=== PATIENT | female | born 1935 | race Caucasian/White ===

== ENCOUNTER → 2016-11-02 | Outpatient (CLI) | payer MEDICARE, OTHER ==
[~2016-11-02] MED LIST: ATACAND8 MG PO; METFORMIN1000 MG PO; [UNRECOGNIZED DRUG - OTHER] PO
== END ==
LOC: LAB 13:36
DX: I10 Essential (primary) hypertension (principal); E11.9 Type 2 diabetes mellitus without complications; M85.80 Other specified disorders of bone density and structure, unspecified site; K90.89 Other intestinal malabsorption

== ENCOUNTER → 2018-05-27 | Outpatient (CLI) | payer MEDICARE, OTHER ==
[2015-02-22 12:02] VITALS: BP 152/74
[2018-05-27 15:56] LABS: EOS # 0.1 (0.04-0.40); EOS % 1.4 % (1.0-5.0); HEMATOCRIT 41.3 % (37.0-47.0); HEMOGLOBIN 14.2 g/dL (12.5-16.0); LYMPH# 2.1 (1.50-4.00); MEAN CELL VOLUME 89 fl (78-100); MEAN CORPUSCULAR HEMOGLOBIN 31 pg (27-31); MEAN CORPUSCULAR HGB CONC 34 g/dL (33-37); MEAN PLATELET VOLUME 10.2 fl (7.4-10.4); MONO # 0.7 (0.20-0.80); NEU # 7.1 (1.40-6.50); PLATELET COUNT 231 K/mm3 (130-400); RED BLOOD COUNT 4.66 M/mm3 (4.10-5.30); RED CELL DISTRIBUTION WIDTH 12.6 % (11.5-14.5); WHITE BLOOD COUNT 10.1 K/mm3 (4.8-10.8)
[2018-05-27 18:00] LABS: ALBUMIN 4.3 g/dL (3.5-5.0); CALCIUM 9.8 mg/dL (8.4-10.2); POTASSIUM 5.3 mmol/L (3.6-5.0); TOTAL BILIRUBIN 0.9 mg/dL (0.2-1.3); TOTAL PROTEIN 6.9 g/dL (6.3-8.2)
== END ==
LOC: LAB 14:47
PROVIDERS: Internal Medicine
DX: E11.9 Type 2 diabetes mellitus without complications (principal); I10 Essential (primary) hypertension; M85.80 Other specified disorders of bone density and structure, unspecified site

== ENCOUNTER → 2018-09-05 | Outpatient (CLI) | payer MEDICARE, OTHER ==
[2015-02-22 12:02] VITALS: BP 152/74
[2018-09-05 13:18] LABS: CALCIUM 9.7 mg/dL (8.4-10.2); POTASSIUM 4.2 mmol/L (3.6-5.0)
== END ==
LOC: LAB 12:47
PROVIDERS: Internal Medicine
DX: E11.9 Type 2 diabetes mellitus without complications (principal); I10 Essential (primary) hypertension

== ENCOUNTER 2018-12-13 12:50 | Emergency (ER) | payer MEDICARE, OTHER ==
[~2018-12-13] VITALS: Wt 63.4 kg
[2018-12-13] MEDS ORDERED: TRULICITY1.5 MG/0.5 SC (13:08)
[2018-12-13] MEDS ORDERED: DONEPEZIL HCL10 MG PO (13:08)
[2018-12-13 14:05] LABS: EOS # 0.1 (0.04-0.40); EOS % 1.4 % (1.0-5.0); LYMPH# 1.8 (1.50-4.00); MEAN CELL VOLUME 88 fl (78-100); MEAN CORPUSCULAR HEMOGLOBIN 30 pg (27-31); MEAN CORPUSCULAR HGB CONC 34 g/dL (33-37); MONO # 0.7 (0.20-0.80); NEU # 6.8 (1.40-6.50); PLATELET COUNT 199 K/mm3 (130-400); RED BLOOD COUNT 4.66 M/mm3 (4.10-5.30); RED CELL DISTRIBUTION WIDTH 12.2 % (11.5-14.5); WHITE BLOOD COUNT 9.5 K/mm3 (4.8-10.8)
[2018-12-13 14:23] LABS: ALBUMIN 4.6 g/dL (3.5-5.0); CALCIUM 9.7 mg/dL (8.4-10.2); POTASSIUM 4.7 mmol/L (3.6-5.0); TOTAL BILIRUBIN 1.6 mg/dL (0.2-1.3); TOTAL PROTEIN 7.7 g/dL (6.3-8.2)
[2018-12-13] MEDS ORDERED: MULTIVITAMIN1 SGL PO (14:58)
[2018-12-13] MEDS ORDERED: VITAMIN D3100000 IU/ (14:59)
[2018-12-13] MEDS ORDERED: VITAMIN B122500 MC1 PO (14:59)
[2018-12-13] MEDS ORDERED: LUTEIN10 MG (14:59)
[2018-12-13 15:12] LABS: URINE COLOR YELLOW
[2018-12-13 15:13] LABS: URINE APPEARANCE HAZY; URINE BILIRUBIN NEGATIVE (NEGATIVE); URINE BLOOD NEGATIVE (NEGATIVE); URINE KETONE NEGATIVE (NEGATIVE); URINE LEUKOCYTE ESTERASE NEGATIVE (NEGATIVE); URINE NITRATE NEGATIVE (NEGATIVE); URINE PROTEIN(semi-quant) TRACE mg/dL (NEGATIVE); URINE UROBILINOGEN NORMAL (NORMAL); URINE WBC 0-1 /hpf (0-3)
[2018-12-13] MEDS ORDERED: ASPIR LOW81 MG PO (15:26)
[2018-12-13 16:56] VITALS: BP 167/84
== END 2018-12-13 16:41 | disposition home or self-care (01) ==
LOC: ED 12:50
PROVIDERS: Nurse Practitioner Family
DX: S00.93XA Contusion of unspecified part of head, initial encounter (principal); F02.80 Dementia in other diseases classified elsewhere, unspecified severity, without behavioral disturbance, psychotic disturbance, mood disturbance, and anxiety; G30.9 Alzheimer's disease, unspecified; I10 Essential (primary) hypertension; E11.9 Type 2 diabetes mellitus without complications; Z79.82 Long term (current) use of aspirin; Z86.73 Personal history of transient ischemic attack (TIA), and cerebral infarction without residual deficits; W18.39XA Other fall on same level, initial encounter; Y92.009 Unspecified place in unspecified non-institutional (private) residence as the place of occurrence of the external cause

== ENCOUNTER 2019-02-24 17:41 | Emergency (ER) | payer MEDICARE, OTHER ==
[~2019-02-24] VITALS: Wt 59.7 kg
[~2019-02-24 17:41] MED LIST changes: +ASPIR LOW81 MG PO; +ATACAND PO; -ATACAND8 MG PO; +DONEPEZIL HCL10 MG PO; +LUTEIN6 M1; +MULTIVITAMIN1 SGL PO; +TRULICITY1.5 MG/0.5 SC; +VITAMIN B122500 MC1 PO; +VITAMIN D3400 UNIT PO
[2019-02-24 18:12] LABS: EOS # 0.1 (0.04-0.40); EOS % 1.1 % (1.0-5.0); HEMATOCRIT 33.2 % (37.0-47.0); HEMOGLOBIN 11.4 g/dL (12.5-16.0); LYMPH# 2.4 (1.50-4.00); MEAN CELL VOLUME 88 fl (78-100); MEAN CORPUSCULAR HEMOGLOBIN 30 pg (27-31); MEAN CORPUSCULAR HGB CONC 34 g/dL (33-37); MEAN PLATELET VOLUME 10.2 fl (7.4-10.4); NEU # 8.6 (1.40-6.50); PLATELET COUNT 304 K/mm3 (130-400); RED BLOOD COUNT 3.76 M/mm3 (4.10-5.30); RED CELL DISTRIBUTION WIDTH 12.5 % (11.5-14.5); WHITE BLOOD COUNT 12.2 K/mm3 (4.8-10.8)
[2019-02-24 18:19] LABS: POTASSIUM 4.8 mmol/L (3.5-5.1)
[2019-02-24 18:20] LABS: CALCIUM 9.7 mg/dL (8.3-10.5)
[2019-02-24 18:21] LABS: TOTAL PROTEIN 7.3 g/dL (6.2-8.1)
[2019-02-24 18:23] LABS: TOTAL BILIRUBIN 0.7 mg/dL (0.2-1.2)
[2019-02-24] MEDS ORDERED: BISCOLAX10 M1 RC (18:43)
[2019-02-24] MEDS ORDERED: FLEET ENEM1 BOT/133 RC (18:44)
[2019-02-24] MEDS ORDERED: LACTAID3000 UNIT PO (18:44)
[2019-02-24] MEDS ORDERED: MEGESTROL400 MG/10 PO (18:46)
[2019-02-24] MEDS ORDERED: METAMUCIL3.4 GM/Dos PO (18:46)
[2019-02-24] MEDS ORDERED: GOOD NEIGHBOR200 M3 PO (18:47)
[2019-02-24] MEDS ORDERED: GOOD NEIGH1200 MG/15 PO (18:47)
[2019-02-24] MEDS ORDERED: TRIDERM454 GM TOP (18:48)
[2019-02-24 18:56] LABS: PH-URINE 5.5 (5.0 - 8.0); URINE APPEARANCE CLEAR; URINE BILIRUBIN NEGATIVE (NEGATIVE); URINE BLOOD NEGATIVE (NEGATIVE); URINE COLOR YELLOW; URINE KETONE NEGATIVE (NEGATIVE); URINE LEUKOCYTE ESTERASE NEGATIVE (NEGATIVE); URINE NITRATE NEGATIVE (NEGATIVE); URINE PROTEIN(semi-quant) TRACE mg/dL (NEGATIVE); URINE UROBILINOGEN NORMAL (NORMAL)
[2019-02-24 19:05] VITALS: BP 157/57
== END 2019-02-24 19:06 | disposition other institution (70) ==
LOC: ED 17:41
PROVIDERS: Nurse Practitioner Primary Care
DX: E11.65 Type 2 diabetes mellitus with hyperglycemia (principal); N17.9 Acute kidney failure, unspecified; E86.0 Dehydration; I10 Essential (primary) hypertension; F41.9 Anxiety disorder, unspecified; G30.9 Alzheimer's disease, unspecified; F02.80 Dementia in other diseases classified elsewhere, unspecified severity, without behavioral disturbance, psychotic disturbance, mood disturbance, and anxiety; Z79.84 Long term (current) use of oral hypoglycemic drugs; Z79.82 Long term (current) use of aspirin
CPT/HCPCS: J1815; J7030

== ENCOUNTER 2019-02-24 18:42 | Inpatient (IN) | payer MEDICARE, OTHER ==
[~2019-02-24] VITALS: Ht 152.4 cm; Wt 55.5 kg
[2019-02-24] MEDS ORDERED: BISCOLAX10 M1 RC (18:43)
[2019-02-24] MEDS ORDERED: FLEET ENEM1 BOT/133 RC (18:44)
[2019-02-24] MEDS ORDERED: LACTAID3000 UNIT PO (18:44)
[2019-02-24] MEDS ORDERED: METAMUCIL3.4 GM/Dos PO (18:46)
[2019-02-24] MEDS ORDERED: MEGESTROL400 MG/10 PO (18:46)
[2019-02-24] MEDS ORDERED: GOOD NEIGH1200 MG/15 PO (18:47)
[2019-02-24] MEDS ORDERED: GOOD NEIGHBOR200 M3 PO (18:47)
[2019-02-24] MEDS ORDERED: TRIDERM454 GM TOP (18:48)
[2019-02-24 19:24] VITALS: BP 157/57
[2019-02-24 19:26] VITALS: BP 157/57
[2019-02-24 23:00] VITALS: BP 130/76
[2019-02-25 03:30] VITALS: BP 118/80
[2019-02-25 06:13] LABS: EOS # 0.2 (0.04-0.40); EOS % 2.2 % (1.0-5.0); HEMATOCRIT 26.9 % (37.0-47.0); HEMOGLOBIN 8.9 g/dL (12.5-16.0); LYMPH# 2.9 (1.50-4.00); MEAN CELL VOLUME 89 fl (78-100); MEAN CORPUSCULAR HEMOGLOBIN 29 pg (27-31); MEAN CORPUSCULAR HGB CONC 33 g/dL (33-37); MEAN PLATELET VOLUME 9.7 fl (7.4-10.4); MONO # 0.7 (0.20-0.80); NEU # 4.3 (1.40-6.50); PLATELET COUNT 243 K/mm3 (130-400); RED BLOOD COUNT 3.04 M/mm3 (4.10-5.30); RED CELL DISTRIBUTION WIDTH 12.4 % (11.5-14.5); WHITE BLOOD COUNT 8.2 K/mm3 (4.8-10.8)
[2019-02-25 06:26] VITALS: BP 123/71
[2019-02-25 06:29] LABS: ALBUMIN 3.3 g/dL (3.4-4.8); POTASSIUM 4.4 mmol/L (3.5-5.1)
[2019-02-25 06:30] LABS: CALCIUM 8.6 mg/dL (8.3-10.5)
[2019-02-25 06:31] LABS: TOTAL PROTEIN 5.9 g/dL (6.2-8.1)
[2019-02-25 06:33] LABS: TOTAL BILIRUBIN 0.8 mg/dL (0.2-1.2)
[2019-02-25 11:00] VITALS: BP 138/75
[2019-02-25 15:14] VITALS: BP 149/58
[2019-02-25 18:54] VITALS: BP 145/72
[2019-02-25 23:00] VITALS: BP 131/70
[2019-02-26 03:00] VITALS: BP 137/64
[2019-02-26 06:30] VITALS: BP 131/64
[2019-02-26 09:18] LABS: EOS # 0.3 (0.04-0.40); EOS % 2.5 % (1.0-5.0); HEMATOCRIT 26.6 % (37.0-47.0); HEMOGLOBIN 8.8 g/dL (12.5-16.0); LYMPH# 3.3 (1.50-4.00); MEAN CELL VOLUME 89 fl (78-100); MEAN CORPUSCULAR HEMOGLOBIN 30 pg (27-31); MEAN CORPUSCULAR HGB CONC 33 g/dL (33-37); MONO # 0.8 (0.20-0.80); NEU # 5.6 (1.40-6.50); PLATELET COUNT 214 K/mm3 (130-400); RED BLOOD COUNT 2.98 M/mm3 (4.10-5.30); RED CELL DISTRIBUTION WIDTH 12.2 % (11.5-14.5); WHITE BLOOD COUNT 9.9 K/mm3 (4.8-10.8)
[2019-02-26 09:24] LABS: POTASSIUM 4.6 mmol/L (3.5-5.1)
[2019-02-26 09:25] LABS: CALCIUM 8.3 mg/dL (8.3-10.5)
[2019-02-26 11:00] VITALS: BP 164/82
[2019-02-26 15:00] VITALS: BP 126/62
[2019-02-26 18:00] VITALS: BP 167/85
[2019-02-26 23:17] VITALS: BP 161/79
[2019-02-27 02:56] VITALS: BP 143/77
[2019-02-27 05:49] LABS: EOS # 0.3 (0.04-0.40); EOS % 2.9 % (1.0-5.0); HEMOGLOBIN 8.7 g/dL (12.5-16.0); MEAN CELL VOLUME 89 fl (78-100); MEAN CORPUSCULAR HEMOGLOBIN 30 pg (27-31); MEAN CORPUSCULAR HGB CONC 34 g/dL (33-37); MONO # 0.8 (0.20-0.80); NEU # 4.9 (1.40-6.50); PLATELET COUNT 216 K/mm3 (130-400); RED BLOOD COUNT 2.92 M/mm3 (4.10-5.30); RED CELL DISTRIBUTION WIDTH 12.2 % (11.5-14.5); WHITE BLOOD COUNT 8.9 K/mm3 (4.8-10.8)
[2019-02-27 06:23] VITALS: BP 147/76
[2019-02-27 07:03] LABS: POTASSIUM 4.2 mmol/L (3.5-5.1)
[2019-02-27 07:05] LABS: CALCIUM 8.4 mg/dL (8.3-10.5)
[2019-02-27 10:59] VITALS: BP 127/64
[2019-02-27 15:00] VITALS: BP 151/81
[2019-02-27] MEDS ORDERED: PAIN & FEVER R500 M1 PO (15:38)
[2019-02-27] MEDS ORDERED: GLUCOPHAGE PO (15:39)
[2019-02-27 16:14] VITALS: BP 151/81
== END 2019-02-27 17:00 | DRG 638 ==
LOC: MED/SURG 18:42
PROVIDERS: Physician Assistant; ADMIT Nurse Practitioner Primary Care
DX: E11.65 Type 2 diabetes mellitus with hyperglycemia (principal); N17.9 Acute kidney failure, unspecified; G30.8 Other Alzheimer's disease; F02.80 Dementia in other diseases classified elsewhere, unspecified severity, without behavioral disturbance, psychotic disturbance, mood disturbance, and anxiety; I10 Essential (primary) hypertension; F41.9 Anxiety disorder, unspecified; Z88.1 Allergy status to other antibiotic agents; E86.0 Dehydration; Z66 Do not resuscitate; Z79.84 Long term (current) use of oral hypoglycemic drugs
CPT/HCPCS: J1815; J7030